=== PATIENT | female | born 1940 | race African-American/Black ===

== ENCOUNTER 2018-04-04 09:40 | Inpatient (IN) | payer OTHER ==
[~2018-04-04] VITALS: Ht 162.6 cm; Wt 80.4 kg
[2018-04-04] MEDS ORDERED: SODIUM CHLORIDE 0.9% 500 ML IVB ONE (09:55)
[2018-04-04] MEDS ORDERED: MORPHINE SULFATE 4 MG/ML SYR/VIAL IV ONE (10:00)
[2018-04-04] MEDS ORDERED: ONDANSETRON HCL 4 MG/2 ML VIAL IV ONE (10:00)
[2018-04-04 10:42] LABS: Basophils # (auto) 0.1 uL; Basophils % (auto) 1.1 % (0.0-2.0); Eosinophils # (auto) 0.1 uL; Eosinophils % (auto) 2.1 % (0.0-7.0); Hematocrit 31.2 % (36.0-46.0); Hemoglobin 10.1 g/dL (12.2-16.2); Lymphocytes # (auto) 1.4 uL; Lymphocytes % (auto) 21.6 % (10.0-50.0); Mean Corpuscular Hemoglobin 28.4 pg (28.0-32.0); Mean Corpuscular Hgb Conc. 32.5 g/dL (32.0-36.0); Mean Corpuscular Volume 87.4 fL (80.0-100.0); Monocytes % (auto) 14.4 % (0.0-12.0); Neutrophils % (auto) 60.8 % (37.0-80.0); Nucleated Red Blood Cells % 0.2 %; Platelet Count (auto) 237 10^3/uL (140-450); Red Blood Cells 3.57 10^6/uL (4.0-5.20); Red Cell Distribution Width 16.1 % (11.8-14.3); White Blood Cell 6.6 10^3/uL (4.4-10.8)
[2018-04-04 11:01] LABS: Albumin 3.2 g/dL (3.4-5.0); Calcium 8.9 mg/dL (8.5-10.1); Potassium 3.5 mmol/L (3.5-5.1)
[2018-04-04 11:04] LABS: BUN/Creatinine Ratio 28.1; Bilirubin, Total 0.2 mg/dL (0.2-1.0); Total Protein 6.8 g/dL (6.4-8.2)
[2018-04-04 12:36] LABS: Urine Bacteria MANY /hpf (None Seen); Urine Blood Negative /uL (Negative); Urine Specific Gravity 1.013 (1.001-1.035); Urine WBC 896 /hpf (0 - 5); Urine WBC Clumps PRESENT /hpf (None Seen)
[2018-04-04] MEDS ORDERED: cefTRIAXone 1GM/10ml IVPUSH 10 ML IV ONE (13:45)
[2018-04-04] MEDS ORDERED: LORazepam 2MG/ML-1ML VIAL IV PRN (13:45)
[2018-04-04] MEDS ORDERED: VANCOMYCIN PER PHARMACY 0 MG IV SCH (13:45)
[2018-04-04] MEDS ORDERED: NITROGLYCERIN 0.4 MG SL TAB SL PRN (14:00)
[2018-04-04] MEDS ORDERED: MORPHINE SULFATE 4 MG/ML SYR/VIAL IV PRN (14:00)
[2018-04-04] MEDS ORDERED: ACETAMINOPHEN 325 MG TAB PO PRN (14:00)
[2018-04-04] MEDS ORDERED: predniSONE 5 MG TAB PO ONE (14:00)
[2018-04-04] MEDS ORDERED: FUROSEMIDE 40 MG TAB PO ONE (14:00)
[2018-04-04] MEDS ORDERED: METOCLOPRAMIDE HCL 10 MG TAB PO PRN (14:00)
[2018-04-04] MEDS ORDERED: ONDANSETRON HCL 4 MG/2 ML VIAL IV PRN (14:00)
[2018-04-04] MEDS ORDERED: amLODIPine BESYLATE 5 MG TAB PO ONE (14:15)
[2018-04-04] MEDS ORDERED: OXcarbazepine 300 MG TAB PO ONE (14:15)
[2018-04-04] MEDS ORDERED: LEVETIRACETAM 500 MG TAB PO ONE (14:15)
[2018-04-04] MEDS ORDERED: VANCOMYCIN 1GM/250ML 250 ML IV ONE (14:30)
[2018-04-04] MEDS: SODIUM CHLOR 0.9% PF (SALINE LOCK) 10ML VIAL/SYR IV SCH ×2 (14:41→21:42)
[2018-04-04] MEDS: MULTIPLE VITAMIN TAB PO SCH (14:50)
[2018-04-04] MEDS: MORPHINE SULFATE 4 MG/ML SYR/VIAL IV PRN ×2 (16:14→20:16)
[2018-04-04] MEDS: LEVETIRACETAM 500 MG TAB PO SCH (21:43)
[2018-04-04] MEDS: CARVEDILOL 12.5 MG TAB PO SCH (21:43)
[2018-04-04] MEDS: ATORVASTATIN 20 MG TAB PO SCH (21:44)
[2018-04-04] MEDS: FAMOTIDINE 20 MG TAB PO SCH (21:44)
[2018-04-04] MEDS: OXcarbazepine 300 MG TAB PO SCH (21:44)
[2018-04-04] MEDS: TEMAZEPAM 15 MG CAP PO PRN (21:46)
[2018-04-04] MEDS ORDERED: SODIUM POLYSTYRENE SULF 15GM/60ML SUSP PO SCH (22:00)
[2018-04-05] MEDS ORDERED: PRE1T PO (00:40)
[2018-04-05] MEDS ORDERED: LEVO100T8 PO (00:40)
[2018-04-05] MEDS ORDERED: CARV25TA55 PO (00:40)
[2018-04-05] MEDS ORDERED: FUR40I IM (00:40)
[2018-04-05] MEDS ORDERED: ATOR20TA PO (00:40)
[2018-04-05] MEDS ORDERED: HYDR50TA15 PO (00:40)
[2018-04-05] MEDS ORDERED: SODI15SU PO (00:44)
[2018-04-05] MEDS ORDERED: OXCA600T3 PO (00:44)
[2018-04-05] MEDS ORDERED: ALLO100T PO (00:44)
[2018-04-05] MEDS ORDERED: KEP500T PO (00:44)
[2018-04-05] MEDS ORDERED: METO10TA3 PO (00:44)
[2018-04-05] MEDS ORDERED: AMLO5TAB2 PO (00:44)
[2018-04-05] MEDS ORDERED: FENO1TAB42 PO (00:44)
[2018-04-05 06:00] VITALS: BP 126/57
[2018-04-05] MEDS: SODIUM CHLOR 0.9% PF (SALINE LOCK) 10ML VIAL/SYR IV SCH ×3 (06:48→22:25)
[2018-04-05] MEDS: LEVOTHYROXINE SODIUM 100 MCG TAB PO SCH (06:49)
[2018-04-05 07:44] LABS: Basophils # (auto) 0.1 uL; Basophils % (auto) 1.8 % (0.0-2.0); Eosinophils # (auto) 0.1 uL; Eosinophils % (auto) 2.3 % (0.0-7.0); Hematocrit 27.1 % (36.0-46.0); Lymphocytes # (auto) 1.7 uL; Lymphocytes % (auto) 29.8 % (10.0-50.0); Mean Corpuscular Hemoglobin 28.9 pg (28.0-32.0); Mean Corpuscular Hgb Conc. 33.3 g/dL (32.0-36.0); Mean Corpuscular Volume 86.8 fL (80.0-100.0); Monocytes # (auto) 0.7 uL; Monocytes % (auto) 12.6 % (0.0-12.0); Neutrophils % (auto) 53.5 % (37.0-80.0); Nucleated Red Blood Cells % 0.1 %; Platelet Count (auto) 219 10^3/uL (140-450); Red Blood Cells 3.12 10^6/uL (4.0-5.20); Red Cell Distribution Width 16.3 % (11.8-14.3); White Blood Cell 5.6 10^3/uL (4.4-10.8)
[2018-04-05 07:53] LABS: Albumin 3.1 g/dL (3.4-5.0); BUN/Creatinine Ratio 31.1; Calcium 8.9 mg/dL (8.5-10.1); Magnesium 2.1 mg/dL (1.6-2.6); Potassium 3.8 mmol/L (3.5-5.1)
[2018-04-05 07:55] LABS: Bilirubin, Total 0.2 mg/dL (0.2-1.0); Total Protein 6.2 g/dL (6.4-8.2)
[2018-04-05 07:56] LABS: INR 0.98 (0.9-1.15); Prothrombin Time 10.7 sec (9.37-12.3)
[2018-04-05 09:00] VITALS: BP 129/61
[2018-04-05] MEDS: cefTRIAXone 1GM/10ml IVPUSH 10 ML IV SCH (09:56)
[2018-04-05] MEDS: ALLOPURINOL 100 MG TAB PO SCH (09:56)
[2018-04-05] MEDS: OXcarbazepine 300 MG TAB PO SCH ×2 (09:57→22:24)
[2018-04-05] MEDS: LEVETIRACETAM 500 MG TAB PO SCH ×2 (09:57→22:24)
[2018-04-05] MEDS: MULTIPLE VITAMIN TAB PO SCH (09:58)
[2018-04-05] MEDS: HYDROcodone-ACET 5/325MG TAB PO PRN ×2 (09:58→13:53)
[2018-04-05] MEDS: predniSONE 5 MG TAB PO SCH (09:58)
[2018-04-05] MEDS: DOCUSATE SOD 100 MG CAP PO PRN (09:58)
[2018-04-05] MEDS: CARVEDILOL 12.5 MG TAB PO SCH ×2 (10:00→22:23)
[2018-04-05] MEDS: amLODIPine BESYLATE 5 MG TAB PO SCH (10:01)
[2018-04-05] MEDS: FUROSEMIDE 40 MG TAB PO SCH (10:01)
[2018-04-05] MEDS: hydrALAZINE HCL 25 MG TAB PO SCH ×4 (11:56→18:02)
[2018-04-05] MEDS ORDERED: VANCOMYCIN 500 MG in D5W 5% 100 ML IV ONE (12:00)
[2018-04-05 13:00] VITALS: BP 131/61
[2018-04-05 18:15] VITALS: BP 137/68
[2018-04-05 22:00] VITALS: BP 131/63
[2018-04-05] MEDS: FAMOTIDINE 20 MG TAB PO SCH (22:24)
[2018-04-05] MEDS: TEMAZEPAM 15 MG CAP PO PRN (22:24)
[2018-04-05] MEDS: ATORVASTATIN 20 MG TAB PO SCH (22:24)
[2018-04-06] MEDS: hydrALAZINE HCL 25 MG TAB PO SCH ×4 (00:05→18:23)
[2018-04-06] MEDS ORDERED: ONDANSETRON HCL 4 MG/2 ML VIAL IV PRN (02:45)
[2018-04-06 04:55] VITALS: BP 160/69
[2018-04-06] MEDS: SODIUM CHLOR 0.9% PF (SALINE LOCK) 10ML VIAL/SYR IV SCH ×3 (05:38→22:07)
[2018-04-06] MEDS: LEVOTHYROXINE SODIUM 100 MCG TAB PO SCH (06:51)
[2018-04-06 07:11] LABS: Basophils # (auto) 0 uL; Basophils % (auto) 0.2 % (0.0-2.0); Eosinophils # (auto) 0.1 uL; Hematocrit 29.9 % (36.0-46.0); Hemoglobin 9.8 g/dL (12.2-16.2); Lymphocytes # (auto) 0.9 uL; Lymphocytes % (auto) 10.6 % (10.0-50.0); Mean Corpuscular Hemoglobin 28.7 pg (28.0-32.0); Mean Corpuscular Hgb Conc. 32.9 g/dL (32.0-36.0); Mean Corpuscular Volume 87.4 fL (80.0-100.0); Monocytes # (auto) 0.7 uL; Monocytes % (auto) 7.9 % (0.0-12.0); Neutrophils # (auto) 7.2 uL; Neutrophils % (auto) 80.3 % (37.0-80.0); Nucleated Red Blood Cells % 0.1 %; Platelet Count (auto) 238 10^3/uL (140-450); Red Blood Cells 3.42 10^6/uL (4.0-5.20); Red Cell Distribution Width 15.6 % (11.8-14.3)
[2018-04-06 07:26] LABS: BUN/Creatinine Ratio 31.8; Potassium 3.8 mmol/L (3.5-5.1)
[2018-04-06 09:00] VITALS: BP 141/65
[2018-04-06] MEDS ORDERED: PROMETHAZINE HCL 25 MG/ML 1ML IV PRN (09:00)
[2018-04-06] MEDS: predniSONE 5 MG TAB PO SCH (09:08)
[2018-04-06] MEDS: cefTRIAXone 1GM/10ml IVPUSH 10 ML IV SCH (09:08)
[2018-04-06] MEDS: HYDROcodone-ACET 5/325MG TAB PO PRN ×2 (09:09→18:23)
[2018-04-06] MEDS: DOCUSATE SOD 100 MG CAP PO PRN (09:09)
[2018-04-06] MEDS: OXcarbazepine 300 MG TAB PO SCH ×2 (09:09→22:14)
[2018-04-06] MEDS: MULTIPLE VITAMIN TAB PO SCH (09:10)
[2018-04-06] MEDS: LEVETIRACETAM 500 MG TAB PO SCH ×2 (09:10→22:12)
[2018-04-06] MEDS: ALLOPURINOL 100 MG TAB PO SCH (09:10)
[2018-04-06] MEDS: FUROSEMIDE 40 MG TAB PO SCH (09:11)
[2018-04-06] MEDS: amLODIPine BESYLATE 5 MG TAB PO SCH (09:11)
[2018-04-06] MEDS: CARVEDILOL 12.5 MG TAB PO SCH ×2 (09:12→22:12)
[2018-04-06] MEDS ORDERED: LACTULOSE 20Gm/30ML SOLN PO ONE (10:45)
[2018-04-06] MEDS: DOCUSATE SOD 100 MG CAP PO SCH ×2 (10:45→22:14)
[2018-04-06 13:00] VITALS: BP 126/54
[2018-04-06 16:55] VITALS: BP 136/65
[2018-04-06 20:00] VITALS: BP 130/58
[2018-04-06] MEDS: ATORVASTATIN 20 MG TAB PO SCH (22:13)
[2018-04-06] MEDS: FAMOTIDINE 20 MG TAB PO SCH (22:14)
[2018-04-06 22:29] VITALS: BP 130/58
[2018-04-07 04:36] VITALS: BP 131/65
[2018-04-07] MEDS: SODIUM CHLOR 0.9% PF (SALINE LOCK) 10ML VIAL/SYR IV SCH ×2 (06:11→14:00)
[2018-04-07] MEDS: hydrALAZINE HCL 25 MG TAB PO SCH ×3 (06:12→12:04)
[2018-04-07] MEDS: LEVOTHYROXINE SODIUM 100 MCG TAB PO SCH (06:31)
[2018-04-07 07:19] LABS: Albumin 3.1 g/dL (3.4-5.0); BUN/Creatinine Ratio 31.6; Bilirubin, Total 0.2 mg/dL (0.2-1.0); Total Protein 5.6 g/dL (6.4-8.2)
[2018-04-07 07:38] VITALS: BP 122/56
[2018-04-07] MEDS ORDERED: VANCOMYCIN 500 MG in D5W 5% 100 ML IV ONE (09:00)
[2018-04-07] MEDS: cefTRIAXone 1GM/10ml IVPUSH 10 ML IV SCH (09:00)
[2018-04-07] MEDS: DOCUSATE SOD 100 MG CAP PO SCH (10:20)
[2018-04-07] MEDS: ALLOPURINOL 100 MG TAB PO SCH (10:20)
[2018-04-07] MEDS: amLODIPine BESYLATE 5 MG TAB PO SCH (10:20)
[2018-04-07] MEDS: CARVEDILOL 12.5 MG TAB PO SCH (10:20)
[2018-04-07] MEDS: MULTIPLE VITAMIN TAB PO SCH (10:20)
[2018-04-07] MEDS: predniSONE 5 MG TAB PO SCH (10:20)
[2018-04-07] MEDS: LEVETIRACETAM 500 MG TAB PO SCH (10:21)
[2018-04-07] MEDS: OXcarbazepine 300 MG TAB PO SCH (10:21)
[2018-04-07] MEDS: FUROSEMIDE 40 MG TAB PO SCH (10:21)
[2018-04-07 12:38] VITALS: BP 127/59
[2018-04-07] MEDS: HYDROcodone-ACET 5/325MG TAB PO PRN (14:04)
== END 2018-04-07 15:20 | disposition hospice, home (50) | DRG 689 ==
LOC: ER 09:40 → TELE 09:41 → TELE-EAST 18:26
PROVIDERS: ADMIT Internal Medicine; ATTEND Internal Medicine
DX: N39.0 Urinary tract infection, site not specified (principal); N18.6 End stage renal disease; N17.9 Acute kidney failure, unspecified; E44.0 Moderate protein-calorie malnutrition; I31.3 Pericardial effusion (noninflammatory); I13.11 Hypertensive heart and chronic kidney disease without heart failure, with stage 5 chronic kidney disease, or end stage renal disease; E87.1 Hypo-osmolality and hyponatremia; N28.0 Ischemia and infarction of kidney; D63.8 Anemia in other chronic diseases classified elsewhere; K57.30 Diverticulosis of large intestine without perforation or abscess without bleeding; K80.20 Calculus of gallbladder without cholecystitis without obstruction; E03.9 Hypothyroidism, unspecified; E78.5 Hyperlipidemia, unspecified; G40.909 Epilepsy, unspecified, not intractable, without status epilepticus; K59.00 Constipation, unspecified; M10.9 Gout, unspecified; G47.00 Insomnia, unspecified; Z90.710 Acquired absence of both cervix and uterus; Z68.30 Body mass index [BMI] 30.0-30.9, adult
CPT/HCPCS: 36415; 51702; 74176; 80048; 80053; 80202; 81001; 82150; 83690; 83735; 85025; 85610; 87040; 87086; 93005; 93306; 96361; 96365; 96375; 97110; 97530; J7060

== ENCOUNTER 2018-11-01 06:06 | Inpatient (IN) | payer OTHER, MEDICAID ==
[~2018-11-01] VITALS: Ht 162.6 cm; Wt 72.5 kg
[~2018-11-01 06:06] MED LIST: ALLO100T PO; AMLO5TAB13 PO; ATOR20TA PO; CARV25TA55 PO; FENO1TAB42 PO; FUR40I IM; HYDR50TA15 PO; KEP500T PO; LEVO100T8 PO; METO10TA3 PO; OXCA600T3 PO; PRE1T PO; SODI15SU PO
[2018-11-01] MEDS ORDERED: SODIUM CHLORIDE 0.9% 1,000 ML IV ONE (07:10)
[2018-11-01] MEDS ORDERED: NITROGLYCERIN 0.4 MG SL TAB SL ONE (07:45)
[2018-11-01 08:24] LABS: Basophils # (auto) 0 uL; Basophils % (auto) 0.7 % (0.0-2.0); Eosinophils # (auto) 0.3 uL; Eosinophils % (auto) 5.7 % (0.0-7.0); Hematocrit 26.1 % (36.0-46.0); Hemoglobin 8.8 g/dL (12.2-16.2); Lymphocytes % (auto) 43.3 % (10.0-50.0); Mean Corpuscular Hemoglobin 29.1 pg (28.0-32.0); Mean Corpuscular Hgb Conc. 33.5 g/dL (32.0-36.0); Mean Corpuscular Volume 86.9 fL (80.0-100.0); Monocytes # (auto) 0.7 uL; Neutrophils # (auto) 1.6 uL; Neutrophils % (auto) 34.3 % (37.0-80.0); Nucleated Red Blood Cells % 0.1 %; Platelet Count (auto) 270 10^3/uL (140-450); Red Blood Cells 3.01 10^6/uL (4.0-5.20); Red Cell Distribution Width 18.3 % (11.8-14.3); White Blood Cell 4.7 10^3/uL (4.4-10.8)
[2018-11-01 08:38] LABS: INR 1.07 (0.9-1.15); Partial Thromboplastin Time 29.6 sec (23.78-33.04); Prothrombin Time 11.4 sec (9.27-12.13)
[2018-11-01 08:43] LABS: Albumin 3.2 g/dL (3.4-5.0); Calcium 8.5 mg/dL (8.5-10.1); Magnesium 1.9 mg/dL (1.6-2.6); Potassium 3.8 mmol/L (3.5-5.1)
[2018-11-01 08:47] LABS: BUN/Creatinine Ratio 13.8; Bilirubin, Total 0.3 mg/dL (0.2-1.0); Total Protein 5.7 g/dL (6.4-8.2)
[2018-11-01] MEDS ORDERED: HYDROcodone-ACET 10/325MG TAB PO ONE (12:30)
[2018-11-01] MEDS ORDERED: LIDOCAINE 2% JELLY 11ml (GLYDO) UR ONE (16:30)
[2018-11-01] MEDS ORDERED: LORazepam 0.5 MG TAB PO PRN (17:15)
[2018-11-01] MEDS ORDERED: MORPHINE SULFATE 4 MG/ML SYR/VIAL IV PRN (17:15)
[2018-11-01] MEDS ORDERED: PROMETHAZINE HCL 25 MG/ML 1ML IV PRN (17:15)
[2018-11-01] MEDS ORDERED: ACETAMINOPHEN 500 MG TAB PO PRN (17:15)
[2018-11-01] MEDS ORDERED: LACTULOSE 20Gm/30ML SOLN PO PRN (17:15)
[2018-11-01] MEDS ORDERED: NITROGLYCERIN 0.4 MG SL TAB SL PRN (17:15)
[2018-11-01] MEDS ORDERED: TEMAZEPAM 15 MG CAP PO PRN (17:15)
[2018-11-01] MEDS: hydrALAZINE HCL 25 MG TAB PO SCH ×2 (18:00→22:35)
[2018-11-01 19:18] LABS: CRP High Sensitivity 0.33 mg/dL (< 0.3)
[2018-11-01 22:00] VITALS: BP 160/67
[2018-11-01] MEDS ORDERED: SODIUM POLYSTYRENE SULF 15GM/60ML SUSP PO SCH (22:00)
[2018-11-01 22:30] VITALS: BP 160/67
[2018-11-01] MEDS: SODIUM CHLOR 0.9% PF (SALINE LOCK) 10ML VIAL/SYR IV SCH (22:34)
[2018-11-01] MEDS: CARVEDILOL 12.5 MG TAB PO SCH (22:35)
[2018-11-01] MEDS: LEVETIRACETAM 500 MG TAB PO SCH (22:35)
[2018-11-01] MEDS: ATORVASTATIN 20 MG TAB PO SCH (22:36)
[2018-11-01] MEDS: OXcarbazepine 300 MG TAB PO SCH (22:36)
[2018-11-01] MEDS: MORPHINE SULFATE 4 MG/ML SYR/VIAL IV PRN (22:36)
[2018-11-01] MEDS: HYDROcodone-ACET 5/325MG TAB PO PRN (23:15)
[2018-11-01] MEDS ORDERED: HYDR-3682 PO (23:30)
[2018-11-01] MEDS ORDERED: SPIR25TA8 PO (23:30)
[2018-11-02] MEDS: MORPHINE SULFATE 4 MG/ML SYR/VIAL IV PRN ×3 (02:25→17:53)
[2018-11-02] MEDS: SODIUM CHLOR 0.9% PF (SALINE LOCK) 10ML VIAL/SYR IV SCH ×3 (06:15→22:29)
[2018-11-02] MEDS: LEVOTHYROXINE SODIUM 100 MCG TAB PO SCH (06:16)
[2018-11-02] MEDS: hydrALAZINE HCL 25 MG TAB PO SCH ×4 (06:16→22:28)
[2018-11-02] MEDS ORDERED: cloNIDine HCL 0.1 MG TAB PO PRN (06:45)
[2018-11-02 07:40] LABS: Cholesterol 180 mg/dL (< 200); HDL Cholesterol 46 mg/dL (40-59); LDL Cholesterol 95 mg/dL (< 100); Triglycerides 168 mg/dL (< 150)
[2018-11-02 09:00] VITALS: BP 148/57
[2018-11-02] MEDS: POTASSIUM CHL 10 Meq TABLET PO SCH (09:44)
[2018-11-02] MEDS: FUROSEMIDE 40 MG/4 ML VIAL IV SCH (09:44)
[2018-11-02] MEDS: LEVETIRACETAM 500 MG TAB PO SCH ×2 (09:46→22:29)
[2018-11-02] MEDS: amLODIPine BESYLATE 5 MG TAB PO SCH (09:46)
[2018-11-02] MEDS: CARVEDILOL 12.5 MG TAB PO SCH ×2 (09:47→22:28)
[2018-11-02] MEDS: predniSONE 5 MG TAB PO SCH (09:48)
[2018-11-02] MEDS: OXcarbazepine 300 MG TAB PO SCH ×2 (09:48→22:29)
[2018-11-02] MEDS: PANTOPRAZOLE 40 MG TAB PO SCH (09:48)
[2018-11-02] MEDS: ASPirin 81 mg TAB PO SCH (09:48)
[2018-11-02] MEDS: ENALAPRIL MALEATE 10 MG TAB PO SCH (09:49)
[2018-11-02] MEDS: ALLOPURINOL 100 MG TAB PO SCH (09:49)
[2018-11-02] MEDS: FENOFIBRATE 145MG TAB PO SCH (09:51)
[2018-11-02] MEDS ORDERED: predniSONE 20 MG TAB PO SCH (10:00)
[2018-11-02] MEDS ORDERED: ENOXAPARIN SOD 40 MG/0.4 ML SYRINGE SC SCH (10:00)
[2018-11-02] MEDS: NITROGLYCERIN 0.2MG/HR TOPICAL PATCH TD SCH (10:01)
[2018-11-02 13:00] VITALS: BP 171/62
[2018-11-02 17:00] VITALS: BP 143/59
[2018-11-02] MEDS: HYDROcodone-ACET 5/325MG TAB PO PRN (20:43)
[2018-11-02 22:00] VITALS: BP 139/63
[2018-11-02] MEDS: ATORVASTATIN 20 MG TAB PO SCH (22:29)
[2018-11-03] MEDS: hydrALAZINE HCL 25 MG TAB PO SCH ×2 (05:19→13:54)
[2018-11-03] MEDS: SODIUM CHLOR 0.9% PF (SALINE LOCK) 10ML VIAL/SYR IV SCH ×2 (05:19→14:00)
[2018-11-03 05:29] VITALS: BP 152/82
[2018-11-03] MEDS: LEVOTHYROXINE SODIUM 100 MCG TAB PO SCH (06:31)
[2018-11-03] MEDS: HYDROcodone-ACET 5/325MG TAB PO PRN ×2 (08:35→11:00)
[2018-11-03 09:00] VITALS: BP 157/67
[2018-11-03] MEDS: FENOFIBRATE 145MG TAB PO SCH (10:00)
[2018-11-03] MEDS ORDERED: ENOXAPARIN SOD 30 MG/0.3 ML SYRINGE SC SCH (10:00)
[2018-11-03] MEDS: ASPirin 81 mg TAB PO SCH (10:46)
[2018-11-03] MEDS: FUROSEMIDE 40 MG/4 ML VIAL IV SCH (10:46)
[2018-11-03] MEDS: predniSONE 5 MG TAB PO SCH (10:46)
[2018-11-03] MEDS: CARVEDILOL 12.5 MG TAB PO SCH (10:47)
[2018-11-03] MEDS: LEVETIRACETAM 500 MG TAB PO SCH (10:47)
[2018-11-03] MEDS: POTASSIUM CHL 10 Meq TABLET PO SCH (10:47)
[2018-11-03] MEDS: OXcarbazepine 300 MG TAB PO SCH (10:48)
[2018-11-03] MEDS: PANTOPRAZOLE 40 MG TAB PO SCH (10:48)
[2018-11-03] MEDS: ENALAPRIL MALEATE 10 MG TAB PO SCH (10:48)
[2018-11-03] MEDS: amLODIPine BESYLATE 5 MG TAB PO SCH (10:48)
[2018-11-03] MEDS: ALLOPURINOL 100 MG TAB PO SCH (10:49)
[2018-11-03] MEDS: NITROGLYCERIN 0.2MG/HR TOPICAL PATCH TD SCH (10:50)
[2018-11-03 11:17] VITALS: BP 157/67
[2018-11-03] MEDS: MORPHINE SULFATE 4 MG/ML SYR/VIAL IV PRN (12:00)
== END 2018-11-03 15:19 | DRG 683 ==
LOC: EDBD 06:06 → ER 06:13 → TELE 17:15 → TELE-CENTR 21:10
PROVIDERS: ADMIT Internal Medicine; ATTEND Family Medicine
DX: N17.9 Acute kidney failure, unspecified (principal); I13.0 Hypertensive heart and chronic kidney disease with heart failure and stage 1 through stage 4 chronic kidney disease, or unspecified chronic kidney disease; E44.1 Mild protein-calorie malnutrition; I69.354 Hemiplegia and hemiparesis following cerebral infarction affecting left non-dominant side; R07.89 Other chest pain; I50.9 Heart failure, unspecified; N18.9 Chronic kidney disease, unspecified; E03.9 Hypothyroidism, unspecified; D63.8 Anemia in other chronic diseases classified elsewhere; E78.5 Hyperlipidemia, unspecified; G40.909 Epilepsy, unspecified, not intractable, without status epilepticus; Z79.899 Other long term (current) drug therapy
CPT/HCPCS: 36415; 71045; 80053; 80061; 82550; 83735; 83880; 84443; 84484; 85025; 85610; 85730; 86141; 87081; 93005; 93306; 96361; 96374; G0378